=== PATIENT | male | born 1975 | race African-American/Black ===

== ENCOUNTER 2018-03-07 17:55 | Emergency (ER) | payer OTHER ==
[~2018-03-07] VITALS: Ht 188 cm; Wt 116.1 kg
[~2018-03-07 17:55] MED LIST: DUONEB 2.5-0.5 M3 ML INH; MEDROLDOSEPACK PO; PREDNISONE 10 M10 M1 PO; PROAIR HFA8.5 GM INH; PROAIR HFA8.5 GM PO; SYMBICORT160 MCG/4. INH; VENTOLIN HFA 1818 GM INH
[2018-03-07] MEDS ORDERED: PROAIR HFA8.5 GM INH (18:28)
[2018-03-07] MEDS ORDERED: SYMBICORT160 MCG/4. INH (18:28)
[2018-03-07] MEDS ORDERED: ALBUTEROL2.5 MG/31 INH (18:28)
[2018-03-07] MEDS ORDERED: PREDNISONE 20 M20 MG PO (18:28)
[2018-03-07 19:15] VITALS: BP 131/63
== END 2018-03-07 19:15 | disposition home or self-care (01) ==
LOC: M.ERS 17:55
DX: J45.901 Unspecified asthma with (acute) exacerbation (principal)

== ENCOUNTER 2018-05-29 02:30 | Emergency (ER) | payer BC ==
[~2018-05-29] VITALS: Ht 188 cm; Wt 106.6 kg
[~2018-05-29 02:30] MED LIST changes: +ALBUTEROL2.5 MG/31 INH; +PREDNISONE 20 M20 MG PO
[2018-05-29] MEDS ORDERED: PROAIR HFA8.5 GM INH (03:12)
[2018-05-29] MEDS ORDERED: ALBUTEROL2.5 MG/31 INH (03:12)
[2018-05-29] MEDS ORDERED: SYMBICORT160 MCG/4. INH (03:12)
[2018-05-29 03:20] VITALS: BP 128/90
== END 2018-05-29 03:20 | disposition home or self-care (01) ==
LOC: M.ERS 02:30
DX: J45.901 Unspecified asthma with (acute) exacerbation (principal)

== ENCOUNTER 2018-06-30 02:20 | Emergency (ER) | payer BC ==
[~2018-06-30] VITALS: Ht 188 cm; Wt 106.6 kg
[2018-06-30] MEDS ORDERED: SYMBICORT160 MCG/4. INH (03:45)
[2018-06-30] MEDS ORDERED: ALBUTEROL2.5 MG/3 M INH (03:45)
[2018-06-30] MEDS ORDERED: PROAIR HFA8.5 GM INH (03:45)
[2018-06-30] MEDS ORDERED: PREDNISONE50 MG PO (03:45)
[2018-06-30 03:56] VITALS: BP 132/75
== END 2018-06-30 03:58 | disposition home or self-care (01) ==
LOC: M.ERS 02:20
DX: J45.901 Unspecified asthma with (acute) exacerbation (principal)

== ENCOUNTER 2019-02-14 23:52 | Emergency (ER) | payer BC ==
[~2019-02-14] VITALS: Ht 188 cm; Wt 102.1 kg
[~2019-02-14 23:52] MED LIST changes: +ALBUTEROL2.5 MG/3 M INH; +PREDNISONE50 MG PO
[2019-02-15 00:52] LABS: ABSOLUTE BASOPHILS 0.1 thou/uL (0.0-0.2); ABSOLUTE LYMPHOCYTES 1.4 thou/uL (0.8-5.3); ABSOLUTE MONOCYTES 0.8 thou/uL (0.0-1.2); ABSOLUTE NEUTROPHILS 6.1 thou/uL (1.6-8.1); BASOPHILS 0.7 %; EOSINOPHILS 0.5 %; HEMATOCRIT 47.1 % (42.0-52.0); HEMOGLOBIN 16.1 gm/dL (14.0-18.0); LYMPHOCYTES 16.3 %; MCHC 34.2 g/dL (28.0-37.0); MCV 87.6 fL (80.0-100.0); MONOCYTES 9.4 %; MPV 7.6 fl. (7.2-11.1); NUCLEATED RBCS 0 /100WBC; PLATELET COUNT* 285 thou/uL (150-400); POLYS 73.1 %; RBC 5.37 mil/uL (4.50-6.00); RDW-CV 14.3 % (10.5-14.5); WBC 8.4 thou/uL (4.0-11.0)
[2019-02-15 00:58] LABS: CALCIUM 8.9 mg/dL (8.5-10.1); CREATININE 1.3 mg/dL (0.6-1.3); POTASSIUM 3.1 mmol/L (3.5-5.1)
[2019-02-15 01:09] LABS: INR 1.1; PROTIME 11.2 Seconds (9.20-11.50)
[2019-02-15 01:16] LABS: ALBUMIN 3.6 g/dL (3.4-5.0); TOTAL BILIRUBIN 0.7 mg/dL (<0.1-1.0)
[2019-02-15] MEDS ORDERED: CARAFATE1 GM PO (02:32)
[2019-02-15 02:45] VITALS: BP 110/45
--- NOTE | 2019-02-15 13:55 | EKG ---
[place] [address] ELECTROCARDIOGRAM REPORT Name: ANGY PONCE Room: [facility]#: [id number] Admission: 02/14/19 Attend Phys: Discharge: 02/15/19 Date of : 77 Report #: [id number] THIS REPORT FOR: //name// [facility] ED Test Date: 2019-02-14 Test Time: 23:58:29 Pat Name: ANGY PONCE Department: Room: Gender: M Poultry Cleaner: TAMIKA : 1975 Requested By: Jaclyn Smith Order Number: [id number] MD: Papa Leach Measurements Intervals [place] Rate: 85 P: 64 LA: 198 QRS: 46 QRSD: 101 T: 47 QT: 384 QTc: 457 Interpretive Statements Sinus arrhythmia Multiform ventricular premature complexes Probable left atrial enlargement Baseline wander in lead(s) V2 Compared to ECG 01/14/2017 07:17:51 Ventricular premature complex(es) now present Sinus tachycardia no longer present Electronically Signed On 02-15-2019 13:55:43 HISTOTECHNICIAN by Papa Leach [email or web address] <ELECTRONICALLY SIGNED> By: Papa Leach MD, FACC 02/15/19 1355 [id number] Papa Leach MD, [facility] /EPI
== END 2019-02-15 02:46 | disposition home or self-care (01) ==
LOC: M.ERS 23:52
PROVIDERS: Personal Emergency Response Attendant
DX: R07.89 Other chest pain (principal); J45.909 Unspecified asthma, uncomplicated

== ENCOUNTER 2019-03-02 04:07 | Emergency (ER) | payer BC ==
[~2019-03-02] VITALS: Ht 188 cm; Wt 103.0 kg
[~2019-03-02 04:07] MED LIST changes: +CARAFATE1 GM PO
[2019-03-02 04:42] LABS: INFLUENZA A ANTIGEN Negative (Negative); INFLUENZA B ANTIGEN Negative (Negative)
[2019-03-02] MEDS ORDERED: ALBUTEROL2.5 MG/31 INH (04:45)
[2019-03-02] MEDS ORDERED: PREDNISONE50 MG PO (04:45)
[2019-03-02] MEDS ORDERED: PROAIR HFA8.5 GM INH (04:45)
[2019-03-02 04:53] VITALS: BP 142/68
== END 2019-03-02 04:53 | disposition home or self-care (01) ==
LOC: M.ERS 04:07
PROVIDERS: Emergency Medicine
DX: J20.9 Acute bronchitis, unspecified (principal); J45.909 Unspecified asthma, uncomplicated

== ENCOUNTER → 2019-03-05 | Emergency (ER) | payer BC ==
[~2019-03-05] VITALS: Ht 188 cm; Wt 103.0 kg
[2019-03-06 01:25] VITALS: BP 143/79
== END ==
LOC: M.ERS 23:54
DX: J45.901 Unspecified asthma with (acute) exacerbation (principal)

== ENCOUNTER 2020-01-24 17:24 | Emergency (ER) | payer OTHER ==
[~2020-01-24] VITALS: Ht 188 cm; Wt 102.1 kg
[2020-01-24] MEDS ORDERED: SYMBICORT160 MCG/4. INH (17:51)
[2020-01-24] MEDS ORDERED: VENTOLIN HFA 1818 GM INH (17:51)
[2020-01-24] MEDS ORDERED: PREDNISONE 10 M10 MG PO (17:51)
[2020-01-24 18:04] VITALS: BP 138/76
== END 2020-01-24 18:05 | disposition home or self-care (01) ==
LOC: M.ERS 17:24
DX: J45.901 Unspecified asthma with (acute) exacerbation (principal)

== ENCOUNTER 2020-03-23 19:15 | Emergency (ER) | payer OTHER ==
[~2020-03-23] VITALS: Ht 188 cm; Wt 102.1 kg
[~2020-03-23 19:15] MED LIST changes: +PREDNISONE 10 M10 MG PO
[2020-03-23] MEDS ORDERED: VENTOLIN HFA 1818 GM INH (19:33)
[2020-03-23] MEDS ORDERED: PREDNISONE 10 M10 MG PO (19:34)
[2020-03-23 19:59] VITALS: BP 123/82
== END 2020-03-23 19:59 | disposition left against medical advice (07) ==
LOC: M.ERS 19:15
DX: J45.901 Unspecified asthma with (acute) exacerbation (principal); Z88.8 Allergy status to other drugs, medicaments and biological substances